=== PATIENT | female | born 2000 | race Hispanic/Latino ===

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

== ENCOUNTER 2020-02-03 11:33 | Outpatient (CLI) | payer OTHER ==
--- NOTE | 2020-02-03 14:00 | Ultrasound Report ---
EXAMINATION: Bilateral Complete Breast Ultrasound, 02/03/2020 INDICATION: BILATERAL BREAST PAIN-patient had left breast surgery September 2019 COMPARISON: Recent left breast ultrasound, 12/31/2019 and prior bilateral breast ultrasound 03/20/2019 FINDINGS: Complete sonographic evlauation of all 4 quadrants and retroareolar region was performed. Right breast: No sonographic abnormality is identified in the right breast. Left breast: Previously noted solid mass in the left breast at 12:00 has been removed surgically. The re is a small postoperative fluid collection at 1-2:00 corresponding to surgical site, measuring appr oximately 1.9 x 0.5 cm. No additional abnormalities are seen in the left breast. IMPRESSION: No sonographic finding of significance within either breast. Small fluid collection is se en in the postoperative site in the left breast at 1-2:00. Follow up recommendation: Clinical correlation is recommended for complaint of bilateral breast pain. BI-RADS Category 2: Benign. Signer Name: Christine Layton MD Signed: 02/03/2020 1:56 PM Workstation Name: [id number]
== END 2020-02-03 11:34 | disposition home or self-care (01) ==
LOC: SPVWC 11:33
PROVIDERS: ATTEND Surgery
DX: N64.9 Disorder of breast, unspecified (principal)